=== PATIENT | female | born 1980 ===

== ENCOUNTER 2020-04-02 12:56 | Emergency (ER) | payer SELFPAY ==
[2020-04-02] MEDS ORDERED: NAPROXEN 250MG TABLET PO ONE (13:15)
[2020-04-02 13:36] VITALS: BP 120/78
== END 2020-04-02 13:35 | disposition home or self-care (01) ==
LOC: ER 12:56
DX: M54.5 Low back pain (principal); G89.29 Other chronic pain; R20.8 Other disturbances of skin sensation; M79.18 Myalgia, other site; M79.672 Pain in left foot; M79.671 Pain in right foot; J02.9 Acute pharyngitis, unspecified
CPT/HCPCS: 99282